=== PATIENT | female | born 1960 | race Caucasian/White ===

== ENCOUNTER → 2016-03-07 | Outpatient (CLI) | payer BC ==
[~2016-03-07] MED LIST: AMLODIPINE-BEN1 EAC4 PO; AMLODIPINE-BEN1 EAC5 PO; APAP500; ASPIRIN EC325 M1 PO; ASPIRIN325 PO; CELEBREX 200 M200 M1; CEPHALEXIN750 MG PO; CLEOCIN HCL150 MG PO; COSENTYX P150 MG/1 M; COSENTYX S150 MG/1 M SQ; COUMADIN 3 MG TA3 M1 PO; COUMADIN 5 MG TA5 M1 PO; ENOXAPARIN100 MG/11 SUBQ; FOLIC ACID1 MG; HUMARA; HUMIRA20 MG/0.4 SUBQ; HYDROCODONE-AP1 EAC6 PO; K-DUR 20 MEQ T20 MEQ PO; LASIX 20 MG TAB20 MG PO; LISINOPRIL20 MG PO; METHOTREXATE 22.5 M1 PO; MOBIC15 MG PO; MULTI VITAMIN1 EACH PO; MULTIVITAMINS1 EAC7; NORVASC5 MG PO; PREDNISONE 10 M10 MG PO; PREDNISONE 2.52.5 M1 PO; TRAMADOL 50 MG50 MG; TRAMADOL 50 MG50 MG PO; TREXALL5 MG; VITAMIN C120 GM; VITAMIN D10000 UNIT PO; VITAMIN D400 UNI1; VITAMIN E100 M1; VITCB500GO PO
== END ==
LOC: HYPER 07:03
DX: I87.2 Venous insufficiency (chronic) (peripheral) (principal); L97.811 Non-pressure chronic ulcer of other part of right lower leg limited to breakdown of skin; L03.115 Cellulitis of right lower limb; L40.50 Arthropathic psoriasis, unspecified; E66.01 Morbid (severe) obesity due to excess calories; I89.0 Lymphedema, not elsewhere classified; Z86.711 Personal history of pulmonary embolism; I10 Essential (primary) hypertension; F17.210 Nicotine dependence, cigarettes, uncomplicated

== ENCOUNTER → 2016-03-14 | Outpatient (CLI) | payer BC | LOC: HYPER 06:59 | DX: L97.811 Non-pressure chronic ulcer of other part of right lower leg limited to breakdown of skin (principal); I87.2 Venous insufficiency (chronic) (peripheral); E66.01 Morbid (severe) obesity due to excess calories; I89.0 Lymphedema, not elsewhere classified; Z86.711 Personal history of pulmonary embolism; I10 Essential (primary) hypertension; M19.90 Unspecified osteoarthritis, unspecified site; F17.210 Nicotine dependence, cigarettes, uncomplicated; Z72.89 Other problems related to lifestyle ==

== ENCOUNTER → 2016-11-04 | Outpatient (CLI) | payer BC ==
[~2016-11-04] VITALS: Ht 167.6 cm; Wt 186.7 kg
[~2016-11-04] MED LIST changes: +BISOPROLOL FUMAR5 MG PO; +KLOR-CON 1010 MEQ PO; +LOTENSIN40 MG PO; +NORCO 5-325 TA1 EACH PO; +STELARA45 MG/0.5
--- NOTE | ~2016-11-04 | HPC ---
[facility] [place] [address] PAIN MANAGEMENT CONSULTATION Name: GO THAO Room #: REG [facility].#: [id number] Admission: 11/04/16 Attend Phys: Meño Gambino MD Discharge: Date of : 58 Report #: [id number] THIS REPORT FOR: //name// CC: Cecil Gambino DATE OF SERVICE: 11/04/2016 DATE OF REGISTRATION: 11/04/2016 CHIEF COMPLAINT: Low back pain with radiation into both legs. HISTORY OF PRESENT ILLNESS: The patient is a pleasant 56-year-old who Dr. Diego has asked me to see her today for an epidural steroid injection. The patient reports that she has low back pain that has been present for nearly 20 years. Pain now involves her back, both knees and radiating pain that follows in the radicular distribution into the calves and feet with numbness, stabbing, tender spasms. She denies weakness, but complains of numbness and tingling. Pain radiates all the way into the right heel and into the left calf. Pain has worsened over the last year. She had cellulitis in February, was hospitalized for 1 week in [place]. She said after that she was told that she had to be at bed rest for 3 months, when she began walking and her pain was much more severe. She had developed pulmonary embolus 3 years ago and has been on anticoagulation therapy since that time. The patient is morbidly obese. She has a BMI of 66.5. She understands that her weight is a critical element to her back pain. Unfortunately, she also smokes and we discussed the importance of quitting smoking today as a way of helping manage her health issues including her pain. In anticipation of her injection today, she has discontinued her Coumadin, which she takes for pulmonary embolus and her INR is 1.0. MEDICATIONS: Warfarin, methotrexate, tramadol, Celebrex, 10 mg of prednisone daily, Lotensin, bisoprolol, potassium, Lasix, hydrocodone 5/325, and Stelara. ALLERGIES: None. PAST MEDICAL HISTORY: Significant for morbid obesity, pulmonary embolism, deep venous thrombosis, and hypertension. PAST SURGICAL HISTORY: Cholecystectomy in 2005, D and C in 2015. 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 She has had to take some time off of work for pain and also during the [facility] [address] [place] [address] PAIN MANAGEMENT CONSULTATION Name: GO THAO Room #: REG [facility]#: [id number] Admission: 11/04/16 Attend Phys: Meño Gambino MD Discharge: Date of : 58 Report #: [id number] time when she had her cellulitis in the lower extremity. REVIEW OF SYSTEMS: The patient have positive psoriasis and psoriatic arthritis, fatigue, weakness, dyspnea on exertion, shortness of breath, frequent diarrhea, nocturia, incontinence, dribbling, memory loss and confusion are noted by the patient at times. PHYSICAL EXAMINATION: VITAL SIGNS: Blood pressure 144/63, heart rate 55, BMI is 66.5. MUSCULOSKELETAL: She is able to move from sitting to standing position, uses a walker for support. She has generalized weakness to the lower extremities. She has pain in her low back with marked tenderness across the lumbosacral segment. Positive straight leg raising is noted, worse on the right. Sensation is normal. She has thick scaly skin in the calves of the lower extremities. IMPRESSION: 1. Low back pain with radiculopathy, bilateral L5-S1 distribution. 2. Morbid obesity. 3. Tobacco abuse with chronic obstructive pulmonary disease. 4. Hypertension. RECOMMENDATIONS: Lumbar epidural steroid injection under fluoroscopic guidance, L4-L5. PROCEDURE: She was taken to the fluoroscopic suite for the treatment. She was placed prone and the skin was prepped with ChloraPrep. The skin anesthetized over the L4-L5 interspace. A 20-gauge Tuohy epidural needle advanced on the first attempt in the epidural space with loss of resistance technique. I used the 6-inch needle. Once in the epidural space, I injected dye and spread of dye was observed in the epidural space using AP and lateral views, it was then followed by 3 mL of 0.5% lidocaine mixed with 80 mg of triamcinolone. She tolerated the procedure well and was observed for 45 minutes and discharged. Followup visit planned in the pain clinic in 1 month. May consider another injection in the future depending on response. By: [id number] Meño Gambino MD /nt
[2016-11-04 09:06] LABS: INR 1.1; PROTIME 11.4 Seconds (9.3-11.4)
[2016-11-04 09:52] VITALS: BP 144/63
== END | disposition home or self-care (01) ==
LOC: PAIN 07:09
PROVIDERS: Anesthesiology Pain Medicine
DX: M54.16 Radiculopathy, lumbar region (principal); E66.01 Morbid (severe) obesity due to excess calories; J44.9 Chronic obstructive pulmonary disease, unspecified; I10 Essential (primary) hypertension; Z68.44 Body mass index [BMI] 60.0-69.9, adult; Z79.899 Other long term (current) drug therapy; F17.210 Nicotine dependence, cigarettes, uncomplicated; Z90.49 Acquired absence of other specified parts of digestive tract

== ENCOUNTER 2016-11-18 09:17 | Emergency (ER) | payer BC ==
[~2016-11-18] VITALS: Ht 167.6 cm; Wt 181.4 kg
[2016-11-18 11:16] LABS: ABSOLUTE NEUTROPHILS 10.6 thou/uL (1.4-8.2); BASOPHILS 0.5 % (0.0-2.0); EOSINOPHILS 0.6 % (0.0-3.0); HEMATOCRIT 47.3 % (37.0-47.0); HEMOGLOBIN 15.6 gm/dL (12.0-15.0); LYMPHOCYTES 13.7 % (24.0-44.0); MCH 32.1 pg (26.0-34.0); MCHC 33.1 g/dL (28.0-37.0); MCV 97.1 fL (80.0-100.0); MONOCYTES 8.2 % (1.0-8.0); PLATELET COUNT 213 thou/uL (150-400); RBC 4.87 mil/uL (4.20-5.00); RDW 15.8 % (10.5-14.5); WBC 13.7 thou/uL (4.0-11.0)
[2016-11-18 11:23] LABS: MANUAL DIFF NO
[2016-11-18 11:30] LABS: CALCIUM 8.9 mg/dL (8.5-10.1); CREATININE 0.8 mg/dL (0.6-1.0); POTASSIUM 4.2 mmol/L (3.5-5.1)
[2016-11-18 11:37] LABS: ALBUMIN 3.1 g/dL (3.4-5.0); DIRECT BILIRUBIN 0.2 mg/dL (<0.1-0.3); TOTAL BILIRUBIN 1.1 mg/dL (<0.1-1.0); TOTAL PROTEIN 7.3 g/dL (6.4-8.2)
[2016-11-18] MEDS ORDERED: NORCO 5-325 TA1 EACH PO (14:03)
[2016-11-18] MEDS ORDERED: KEFLEX500 MG PO (14:03)
== END 2016-11-18 14:11 | disposition home or self-care (01) ==
LOC: ER 09:17
PROVIDERS: Nurse Practitioner
DX: L03.116 Cellulitis of left lower limb (principal); L03.115 Cellulitis of right lower limb; F17.210 Nicotine dependence, cigarettes, uncomplicated; F10.99 Alcohol use, unspecified with unspecified alcohol-induced disorder; Z98.890 Other specified postprocedural states

== ENCOUNTER → 2018-12-30 | Outpatient (CLI) | payer BC ==
[~2018-12-30] VITALS: Ht 170.2 cm; Wt 172.4 kg
[~2018-12-30] MED LIST changes: +CLARITIN10 M2 PO; +COUMADIN 2.5MG2.5 M1 PO; +KEFLEX500 MG PO; +NORCO 5-325 TA1 EAC1 PO; +PREDNISONE 5 MG5 MG PO
--- NOTE | ~2018-12-30 | P ---
[facility] [place] [address] PROCEDURE REPORT Name: GO THAO [id number] Admission: 12/30/18 Attend Phys: Franklin Maloney Discharge: Date of : 58 Report #: [id number] THIS REPORT FOR: //name// CC: YU Arceo DATE OF SERVICE: 12/30/2018 PROCEDURE PERFORMED: Colonoscopy with polypectomies. HISTORY OF PRESENT ILLNESS: The patient is a 58-year-old female who presents today for her screening colonoscopy. No family history of colon cancer. She denies any blood in her stools. She does report loose stools at times after her gallbladder was removed in 2000. I also obtained random biopsies of the colon today to rule out the possibility of microscopic colitis. DESCRIPTION OF PROCEDURE: The risks and benefits of the procedure were explained to the patient, those risks including but not limited to bleeding, perforation, and the risk of sedation. She understood these risks and gave informed consent. Sedation was given using propofol per anesthesia. Next, a digital rectal exam was initially performed, which was normal. Next, using a standard Olympus colonoscope, the scope was placed in the patient's anus and advanced under direct vision to the cecum. The overall prep was excellent. In the cecum, near the appendiceal orifice was a pedunculated 1 cm polyp. This was on the edge of the opening of the appendiceal orifice, I was able to remove it without difficulty by snare cautery, otherwise normal cecum. The ileocecal valve was normal. The ascending, transverse and descending colon were normal. A few scattered diverticula were noted in the sigmoid colon. Also noted was a 3 mm sessile polyp. This was removed by cold forceps. In the rectum, on retroflexion, another 3 mm sessile polyp noted and removed with cold forceps. Also noted were small nonbleeding internal hemorrhoids. The scope was then withdrawn and the procedure terminated. The patient tolerated the procedure well. IMPRESSION: 1. Three colonic polyps. 2. Sigmoid diverticulosis. 3. Small internal hemorrhoids. 4. Otherwise, normal colonoscopy. RECOMMENDATIONS: 1. Await biopsy results. 2. Repeat colonoscopy in [address] [address] PROCEDURE REPORT Name: GO THAO Room #: REG Tae Castillo#: [id number] Admission: 12/30/18 Attend Phys: Franklin Maloney Discharge: Date of : 58 Report #: [id number] Thank you for allowing me to participate in her care. By: [id number] Franklin Blackwell MD /nt
[2018-12-30 09:42] LABS: INR 1.2; PROTIME 12.2 Seconds (9.3-11.4)
--- NOTE | 2019-01-01 20:06 | PATH ---
[facility] [address] [place] [address] PATHOLOGY RPT PROCEDURE Name: GO THAO NEREIDA Room #: REG JENNI Issa.#: [id number] Admission: 12/30/18 Date of : 58 Discharge: Report #: [id number] Path Case #: [id number] [facility] Accession Number: [id number] . 01 Material submitted: . PART A: colon - POLYP AT APPENDICEAL ORFICE PART B: colon - RANDOM COLON BIOPSY R/O MICROSCOPIC COLITIS PART C: colon - POLYP AT SIGMOID COLON. Modifiers: sigmoid PART D: rectum - POLYP AT RECTUM . 01 Clinical history: . Pre-op diagnosis: Screening, history of diarrhea Post-op diagnosis: Polyps, sigmoid diverticulosis B: R/O microscopic colitis . 02 Diagnosis: A. "Polyp at appendiceal orifice", biopsy: - Tubular adenoma; no high grade dysplasia. . B. "Random colon BX R/O microscopic colitis", biopsy: - Colonic mucosa with mild reactive changes; no evidence of active, lymphocytic or collagenous colitis and no dysplasia seen. . C. "Polyp at sigmoid colon", biopsy: - Hyperplastic polyp. . D. "Polyp at rectum", biopsy: - Hyperplastic polyp. (CLW/db; 01/01/2019) LBQ 01/01/2019 1104 Local . 02 Electronically signed: . Trish Novoa MD, Pathologist NPI- [id number] . 01 Gross description: . A. The specimen is received in formalin, labeled "Go Thao, polyp at appendiceal orifice". Received is a segment of light brown soft tissue measuring 0.9 x 0.8 x 0.7 cm in greatest dimensions. The surgical margin is inked. The specimen is bisected perpendicular to the margin and entirely submitted in cassette A1. . B. The specimen is received in formalin, labeled "Go Thao, random colon biopsy". Received are four segments of pale galeana soft tissue ranging in size from 0.3 to 0.6 cm in maximum dimensions. The specimen is submitted entirely in cassette B1. . [address] [address] PATHOLOGY RPT PROCEDURE Name: GO THAO Room #: REG JENNI Castillo#: [id number] Admission: 12/30/18 Date of : 58 Discharge: Report #: [id number] Path Case #: [id number] C. The specimen is received in formalin, labeled "Go Sutherlander, polyp at sigmoid colon". Received are two segments of pale galeana soft tissue ranging in size from 0.3 to 0.4 cm in maximum dimensions. The specimen is submitted entirely in cassette C1. . D. The specimen is received in formalin, labeled "Go Rodriguezeier, polyp at rectum". Received is a segment of pale galeana soft tissue measuring 0.4 cm in maximum dimensions. The specimen is submitted entirely in cassette D1. ([facility]; 12/31/2018) QA/QA 12/31/2018 1039 Local . 02 Pathologist provided ICD-10: D12.1, K63.5, K62.1 . 02 CPT . 429761, 849911, 525610, 333011 Specimen Comment: A courtesy copy of this report has been sent to [phone], [phone] Specimen Comment: [id number] Specimen Comment: Report sent to / DR PATTERSON Performed at: 01 [facility] [address] [place] [address] [address], [place] [id number] MD Norris Ulloa MD Phone: [phone] Performed at: [address] [id number] MD Ivana Celeste MD Phone: [phone]
== END | disposition home or self-care (01) ==
LOC: GI 08:25
PROVIDERS: Specialist
DX: R19.7 Diarrhea, unspecified (principal); D12.1 Benign neoplasm of appendix; K57.30 Diverticulosis of large intestine without perforation or abscess without bleeding; K64.8 Other hemorrhoids; K21.9 Gastro-esophageal reflux disease without esophagitis; I10 Essential (primary) hypertension; F17.210 Nicotine dependence, cigarettes, uncomplicated; Z98.890 Other specified postprocedural states; Z79.899 Other long term (current) drug therapy; Z86.711 Personal history of pulmonary embolism; Z90.49 Acquired absence of other specified parts of digestive tract; Z79.01 Long term (current) use of anticoagulants; Z98.51 Tubal ligation status; Z87.01 Personal history of pneumonia (recurrent)
CPT/HCPCS: 62110; 62900